=== PATIENT | male | born 1960 | race African-American/Black ===

== ENCOUNTER 2016-09-11 16:33 | Emergency (ER) | payer OTHER ==
[2016-09-11] MEDS ORDERED: Metoprolol Tartrate 5 MG/5 ML VIAL ONE (16:53)
[2016-09-11] MEDS ORDERED: Ondansetron HCl/PF 4 MG/2 ML Vial ONE (16:54)
[2016-09-11 17:03] LABS: #Basophils 0.1 thou/uL (0.0-0.2); #Lymphocytes 1.5 thou/uL (1.20-3.40); #Monocytes 0.6 thou/uL (0.11-0.59); #Neutrophils 13.4 thou/uL (1.40-6.50); %Basophils 0.6 % (0.0-1.0); %Eosinophils 0.1 % (0.0-10.0); %Lymphocytes 9.7 % (21.0-51.0); %Neutrophils 85.6 % (42.0-75.0); Hemoglobin 15.6 g/dL (14.0-18.0); Mean Corpuscular HGB CONC 33.1 g/dL (32.0-36.0); Mean Corpuscular Hemoglobin 31.5 pg (27.0-31.0); Mean Corpuscular Volume 95.2 fl (80.0-94.0); Mean Platelet Volume 7.1 fL (7.4-10.4); Platelet Count 346 thou/uL (130-400); Red Blood Cell (RBC) Count 4.94 mill/uL (4.70-6.10); White Blood Cell (WBC) Count 15.7 thou/uL (4.8-10.8)
[2016-09-11 17:10] LABS: INR-International Normal Ratio 0.9; PTT 28.6 SEC (22.9-36.1); Prothrombin Time 12.9 SEC (12.0-14.7)
[2016-09-11 17:13] LABS: D-Dimer Test Less than 0.27 *mcg/mL (0.27-0.43)
[2016-09-11 17:22] LABS: CKMB 14.4 ng/mL (0-6.6); Troponin I 0.312 ng/mL (< 0.028)
[2016-09-11] MEDS ORDERED: HEPARIN ONE (18:13)
[2016-09-11] MEDS ORDERED: DEXTROSE ONE (18:13)
[2016-09-11] MEDS ORDERED: Heparin 5,000 UNITS/ML VIAL ONE (18:13)
--- NOTE | 2016-09-11 20:35 | RAD ---
PORTABLE CHEST 09/11/16 An AP portable film at 1650 shows a normal sized heart and clear lungs. There is no infiltrate, effu ariane or vascular congestion. The mediastinum appears normal and the trachea is midline. There has be en no adverse change when compared with the 07/06/09 study. IMPRESSION: No acute finding. POS: HOME
== END 2016-09-11 17:16 | disposition short-term general hospital (02) ==
LOC: BURERS 16:33
DX: I21.3 ST elevation (STEMI) myocardial infarction of unspecified site (principal); I10 Essential (primary) hypertension; E78.5 Hyperlipidemia, unspecified; F17.210 Nicotine dependence, cigarettes, uncomplicated; I25.2 Old myocardial infarction
CPT/HCPCS: 71010; 82553; 83880; 84484; 85025; 85379; 85610; 85730; 93005; 96365; 96375; 96376; J1644; J2270; J2405